=== PATIENT | male | born 1995 | race Hispanic/Latino ===

== ENCOUNTER 2019-09-23 01:11 | Inpatient (IN) | payer SELFPAY ==
[2019-09-23] MEDS ORDERED: Adacel (T-DAP) 0.5 ML SYRINGE ONE (01:19)
[2019-09-23] MEDS ORDERED: Fentanyl 100 MCG/2 ML VIAL ONE ×2 (01:20→01:31)
[2019-09-23] MEDS ORDERED: Ondansetron PF 4 MG/2 ML Vial ONE (01:23)
[2019-09-23 01:44] LABS: INR-International Normal Ratio 2.2; PTT 31.2 SEC (22.9-36.1); Prothrombin Time 24.6 SEC (12.0-14.7)
[2019-09-23 01:45] LABS: #Eosinphils 0.1 thou/uL (0.0-0.7); #Lymphocytes 2.6 thou/uL (1.20-3.40); #Neutrophils 7.2 thou/uL (1.40-6.50); %Basophils 0.4 % (0.0-1.0); %Eosinophils 0.6 % (0.0-10.0); %Lymphocytes 23.6 % (21.0-51.0); %Monocytes 8.8 % (0.0-10.0); %Neutrophils 66.6 % (42.0-75.0); Hemoglobin 8.1 g/dL (14.0-18.0); Mean Corpuscular HGB CONC 36.7 g/dL (32.0-36.0); Mean Corpuscular Volume 92.5 fL (78.0-98.0); Mean Platelet Volume 7.5 fL (7.4-10.4); Platelet Count 158 thou/uL (130-400); RBC Distribution Width 11.6 % (11.5-14.5); White Blood Cell (WBC) Count 10.8 thou/uL (4.8-10.8)
[2019-09-23 01:53] LABS: ALT (SGPT) 9 U/L (8-55); AST (SGOT) 12 U/L (5-34); Albumin 1.7 g/dL (3.5-5.0); Alkaline Phosphatase 27 U/L (40-110); Anion Gap 4 mmol/L (10-20); BUN (Urea Nitrogen) Less than 4 mg/dL (8.9-20.6); Bilirubin, Total 0.2 mg/dL (0.2-1.2); Calc. Creatinine Clearance 0 mL/min (70-130); Carbon Dioxide 11 mmol/L (22-29); Estimated GFR-MDRD Greater than 90; Glucose 65 mg/dL (70-105); Protein, Total 2.7 g/dL (6.0-8.3); Sodium 146 mmol/L (136-145)
[2019-09-23 02:23] LABS: Calcium 3.5 mg/dL (7.8-10.44); Chloride 133 mmol/L (98-107); Potassium 1.6 mmol/L (3.5-5.1)
[2019-09-23] MEDS ORDERED: Sodium Bicarb 50 MEQ/50 ML VIAL ONE (02:25)
[2019-09-23] MEDS ORDERED: Midazolam HCl 5 mg/5 ml Vial ONE (02:26)
[2019-09-23 02:35] LABS: Amphetamine Not Detected (NotDetected); Barbiturates Screen Not Detected (NotDetected); Benzodiazepine Screen Not Detected (NotDetected); Cocaine Metabolite Screen Not Detected (NotDetected); Medtox Control Line Valid? VALID (VALID); Medtox Reader # READER 4; Methadone Not Detected (NotDetected); Methamphetamine Not Detected (NotDetected); Opiate Screen Not Detected (NotDetected); Oxycodone Screen Not Detected (NotDetected); Phencyclidine (PCP) Not Detected (NotDetected); THC/Cannabinoid Screen Not Detected (NotDetected); Tricyclic Screen Not Detected (NotDetected)
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
[2019-09-23] MEDS ORDERED: Dextrose 50% Abboject 50 ML SYRINGE SLOW IVP PRN (03:33)
[2019-09-23] MEDS ORDERED: Dextrose 5% in Water 1,000 ML IV PRN (03:33)
[2019-09-23] MEDS ORDERED: Ventilator Sedation Protocol 1 EACH FS SCH (03:41)
[2019-09-23] MEDS ORDERED: Morphine 2 MG/ML SYRINGE SLOW IVP PRN ×2 (03:45→18:01)
[2019-09-23] MEDS ORDERED: fentaNYL Citrate/PF 2,000 MCG in Sodium Chloride 0.9% 60 ML IV SCH (03:45)
[2019-09-23] MEDS ORDERED: Fentanyl BOLUS 250 ML IVPB PRN (03:45)
[2019-09-23] MEDS ORDERED: Lorazepam 2 MG/ML VIAL SLOW IVP PRN (03:45)
[2019-09-23] MEDS ORDERED: DISCONTINUE PREVIOUS NARCOTIC PAIN MEDICATIONS AND BENZODIAZEPINES FS SCH (03:45)
[2019-09-23] MEDS ORDERED: Propofol BOLUS 1,000 MG/100 ML VIAL IV PRN (03:45)
[2019-09-23] MEDS ORDERED: Sodium Chloride 0.9% 1,000 ML IV SCH ×2 (03:45→10:45)
[2019-09-23 04:07] VITALS: BMI 29.2
[2019-09-23 04:08] LABS: Base Excess (BEa) -7.6 mEq/L (-2.0 to +3.0); CO2 Tension 42.3 mmHg (35.0-45.0); Calcium, Ionized 1.04 mmol/L (1.12-1.30); O2 Tension (PaO2) 91.8 mmHg (80.0-100.0); Potassium - ABG Lab 3.82 mmol/L (3.70-5.30); pH, Arterial 7.27 (7.35-7.45)
[2019-09-23 04:10] LABS: ALV-art Gradient 140.525 (0-20); Puncture Site LINE
[2019-09-23] MEDS: Propofol 1,000 MG/100 ML VIAL IV PRN ×2 (04:11→10:49)
[2019-09-23 04:53] LABS: INR-International Normal Ratio 1.3; PTT 23.1 SEC (22.9-36.1); Prothrombin Time 15.7 SEC (12.0-14.7)
[2019-09-23 04:56] LABS: #Monocytes 0.4 thou/uL (0.11-0.59); #Neutrophils 4.4 thou/uL (1.40-6.50); %Basophils 0.2 % (0.0-1.0); %Eosinophils 0.3 % (0.0-10.0); %Lymphocytes 29.5 % (21.0-51.0); %Monocytes 5.2 % (0.0-10.0); %Neutrophils 64.9 % (42.0-75.0); Alcohol 92 mg/dL (Less than 10); Hemoglobin 15.4 g/dL (14.0-18.0); Mean Corpuscular HGB CONC 34.1 g/dL (32.0-36.0); Mean Corpuscular Hemoglobin 31.2 pg (27.0-31.0); Mean Corpuscular Volume 91.4 fL (78.0-98.0); Mean Platelet Volume 7.7 fL (7.4-10.4); Phosphorus 2.8 mg/dL (2.3-4.7); Platelet Count 241 thou/uL (130-400); RBC Distribution Width 12.1 % (11.5-14.5); Red Blood Cell (RBC) Count 4.94 mill/uL (4.70-6.10); White Blood Cell (WBC) Count 6.8 thou/uL (4.8-10.8)
[2019-09-23 05:08] LABS: ALT (SGPT) 23 U/L (8-55); AST (SGOT) 32 U/L (5-34); Albumin 3.6 g/dL (3.5-5.0); Alkaline Phosphatase 61 U/L (40-110); Anion Gap 15 mmol/L (10-20); BUN (Urea Nitrogen) 6 mg/dL (8.9-20.6); Bilirubin, Total 0.5 mg/dL (0.2-1.2); Calc. Creatinine Clearance 180 mL/min (70-130); Calcium 7.3 mg/dL (7.8-10.44); Carbon Dioxide 18 mmol/L (22-29); Chloride 113 mmol/L (98-107); Estimated GFR-MDRD Greater than 90; Glucose 128 mg/dL (70-105); Magnesium 1.5 mg/dL (1.6-2.6); Protein, Total 5.6 g/dL (6.0-8.3); Sodium 142 mmol/L (136-145)
[2019-09-23] MEDS: Acetaminophen 1,000 MG in Premix Bag 1 BAG IVPB SCH ×3 (05:42→17:46)
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
[2019-09-23] MEDS: MEROPENEM 1 GM/50 ML 1 GM in Premix Bag 1 BAG IVPB SCH ×3 (06:00→22:17)
[2019-09-23 07:08] LABS: Actual Bicarbonate (HCO3a) 17.1 mEq/L (22-28); Base Excess (BEa) -8.7 mEq/L (-2.0 to +3.0); CO2 Tension 36.5 mmHg (35.0-45.0); Calcium, Ionized 1.06 mmol/L (1.12-1.30); Carboxyhemoglobin (COHb) 0.6 gm% (0.0-3.0); Hemoglobin (Hb) 15.1 g/dL (14.0-18.0); O2 Tension (PaO2) 164.2 mmHg (80.0-100.0); Potassium - ABG Lab 3.99 mmol/L (3.70-5.30); pH, Arterial 7.29 (7.35-7.45)
[2019-09-23 07:09] LABS: ALV-art Gradient 75.375 (0-20); Puncture Site LINE
[2019-09-23] MEDS ORDERED: Magnesium Sulfate 4 GM in Sodium Chloride 0.9% 250 ML 250 ML IVPB SCH (07:30)
[2019-09-23] MEDS ORDERED: Calcium Chloride 13.6 MEQ in Sodium Chloride 0.9% 100 ML IVPB SCH (07:30)
[2019-09-23] MEDS ORDERED: Calcium Chloride 1 GM/10 ML Abboject SYRINGE IVP SCH (07:30)
[2019-09-23] MEDS ORDERED: Calcium Gluconate 4.6 MEQ in Sodium Chloride 0.9% 100 ML IVPB SCH (07:45)
[2019-09-23] MEDS: Sodium Chloride 0.9% 1,000 ML IV SCH ×3 (07:47→21:19)
[2019-09-23] MEDS: Famotidine/PF 20 mg/2ml Vial SLOW IVP SCH ×2 (08:16→21:10)
[2019-09-23] MEDS ORDERED: FLU VACC QS2019-20(6MOS UP)/PF 60 MCG/0.5 ML SYRINGE IM ONE (09:00)
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
[2019-09-23 09:32] LABS: Lactic Acid 2.5 mmol/L (0.5-2.2)
[2019-09-23] MEDS ORDERED: Rocuronium Bromide 10 MG/ML (10ML VIAL) ONE (09:56)
[2019-09-23] MEDS ORDERED: PROPOFOL 200 MG/20 ML VIAL ONE (09:56)
[2019-09-23] MEDS ORDERED: Vecuronium 10 MG VIAL ONE (09:56)
[2019-09-23] MEDS ORDERED: Succinylcholine Chloride 20 MG/ML 10 ml SYRINGE FS ONE (09:56)
[2019-09-23] MEDS ORDERED: PHENYLEPHRINE-NS 100 MCG/ML 10 ML SYRINGE ONE (09:56)
[2019-09-23] MEDS ORDERED: Lidocaine 1% PF 5 ML VIAL ONE (09:56)
[2019-09-23] MEDS: Sodium Chloride 0.9% 500 ML IV SCH (10:14)
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
[2019-09-23] MEDS: Clindamycin/D5W 900 MG in Premix Bag 1 BAG IVPB SCH ×2 (13:29→21:11)
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
[2019-09-23] MEDS: Ondansetron PF 4 MG/2 ML Vial IVP PRN (13:50)
[2019-09-23] MEDS: Morphine 4 MG/ML VIAL SLOW IVP PRN ×4 (13:51→21:06)
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
[2019-09-24] MEDS: Acetaminophen 1,000 MG in Premix Bag 1 BAG IVPB SCH ×3 (00:16→18:00)
[2019-09-24] MEDS: Ondansetron PF 4 MG/2 ML Vial IVP PRN (00:33)
[2019-09-24] MEDS: Morphine 4 MG/ML VIAL SLOW IVP PRN ×3 (00:52→06:07)
[2019-09-24] MEDS: Clindamycin/D5W 900 MG in Premix Bag 1 BAG IVPB SCH (05:29)
[2019-09-24] MEDS: Sodium Chloride 0.9% 1,000 ML IV SCH ×3 (05:30→23:37)
[2019-09-24] MEDS: MEROPENEM 1 GM/50 ML 1 GM in Premix Bag 1 BAG IVPB SCH ×3 (06:33→22:27)
[2019-09-24 07:47] LABS: Anion Gap 5 mmol/L (10-20); BUN (Urea Nitrogen) 10 mg/dL (8.9-20.6); Calc. Creatinine Clearance 167 mL/min (70-130); Carbon Dioxide 27 mmol/L (22-29); Chloride 109 mmol/L (98-107); Estimated GFR-MDRD Greater than 90; Glucose 103 mg/dL (70-105); Magnesium 2.1 mg/dL (1.6-2.6); Phosphorus 1.8 mg/dL (2.3-4.7); Potassium 4.3 mmol/L (3.5-5.1); Sodium 137 mmol/L (136-145)
[2019-09-24] MEDS ORDERED: Sodium Phosphate 30 MMOL in Sodium Chloride 0.9% 250 ML 250 ML IVPB SCH (08:00)
[2019-09-24] MEDS: Famotidine/PF 20 mg/2ml Vial SLOW IVP SCH ×2 (09:02→20:16)
[2019-09-24 09:05] LABS: Band 28 % (5-11); Eosinophils 2 % (0-10); Lymphocytes 15 % (21-51); MDiff Complete? YES; Mean Corpuscular HGB CONC 33.4 g/dL (32.0-36.0); Mean Corpuscular Hemoglobin 31.1 pg (27.0-31.0); Mean Corpuscular Volume 93.1 fL (78.0-98.0); Mean Platelet Volume 7.5 fL (7.4-10.4); Metamyelocyte 1 % (0-0); Monocytes 6 % (0-10); Neutrophil 48 % (42-75); Platelet Count 198 thou/uL (130-400); RBC Distribution Width 12.3 % (11.5-14.5); Red Blood Cell (RBC) Count 4.17 mill/uL (4.70-6.10)
[2019-09-24] MEDS ORDERED: PHENYLEPHRINE-NS 100 MCG/ML 10 ML SYRINGE ONE (09:37)
[2019-09-24] MEDS ORDERED: PROPOFOL 200 MG/20 ML VIAL ONE (09:37)
[2019-09-24] MEDS ORDERED: Rocuronium Bromide 10 MG/ML (10ML VIAL) ONE (09:37)
[2019-09-24] MEDS ORDERED: Ondansetron PF 4 MG/2 ML Vial ONE (09:37)
[2019-09-24] MEDS ORDERED: Succinylcholine Chloride 20 MG/ML 10 ml SYRINGE FS ONE (09:37)
[2019-09-24] MEDS ORDERED: Glycopyrrolate 0.2 MG/ML 5 ML SYRINGE ONE (09:37)
[2019-09-24] MEDS ORDERED: Lidocaine 1% PF 5 ML VIAL ONE (09:37)
[2019-09-24] MEDS ORDERED: Ketorolac Tromethamine 30 MG/ML VIAL ONE (09:37)
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
[2019-09-24] MEDS ORDERED: Vancomycin HCl 1 GM in Premix Bag 1 BAG IVPB SCH (14:00)
[2019-09-24] MEDS ORDERED: Gentamicin Sulfate 80 MG in Premix Bag 1 BAG IVPB SCH (14:15)
[2019-09-24] MEDS ORDERED: Promethazine HCl 25 MG/ML VIAL IM PRN ×2 (14:25→18:45)
[2019-09-24] MEDS ORDERED: Ondansetron HCl/PF 4 MG/2 ML Vial IVP PRN ×2 (14:25→18:45)
[2019-09-24] MEDS ORDERED: Promethazine HCl 25 MG/ML VIAL SLOW IVP PRN ×2 (14:25→18:45)
[2019-09-24] MEDS ORDERED: Fentanyl 250 MCG/5 ML VIAL ONE (14:45)
[2019-09-24] MEDS ORDERED: Sodium Chloride 0.9% 30 ML ONE (14:58)
[2019-09-24] MEDS ORDERED: Betamet Acet/Betamet Na Ph 30 MG/5 ML VIAL ONE (14:58)
[2019-09-24] MEDS ORDERED: Bacitracin Zinc Ointment 30 gm TUBE ONE (14:58)
[2019-09-24] MEDS ORDERED: Bupivacaine PF 0.5% 30 ML VIAL ONE (14:58)
[2019-09-24] MEDS ORDERED: Naloxone HCl 0.4 mg/ml Vial IV PRN (16:25)
[2019-09-24] MEDS ORDERED: HYDROmorphone 10 mg/100 ml CADD IV PRN (16:25)
[2019-09-24] MEDS ORDERED: Phenylephrine HCL 10 MG/ML VIAL ONE (16:36)
--- NOTE | 2019-09-24 18:35 | RAD ---
XR Hand Lt 2 View History: ORIF Comparison: None. Findings: No diagnostic images were sent for review. Impression: Total fluoroscopy time: 19 seconds.
[2019-09-24] MEDS ORDERED: Morphine Sulfate 2 MG/ML SYRINGE SLOW IVP PRN (18:45)
[2019-09-24] MEDS ORDERED: PACU-Morphine 4MG/ML VIAL SLOW IVP PRN (18:45)
[2019-09-24] MEDS ORDERED: HYDROmorphone 2 MG/ML VIAL SLOW IVP PRN (18:45)
[2019-09-24] MEDS ORDERED: Midazolam HCl 2 mg/2 ml Vial ONE (18:55)
[2019-09-24 20:06] LABS: Hemoglobin 11.7 g/dL (14.0-18.0); Mean Corpuscular HGB CONC 33.6 g/dL (32.0-36.0); Mean Corpuscular Hemoglobin 31.5 pg (27.0-31.0); Mean Corpuscular Volume 93.7 fL (78.0-98.0); Platelet Count 189 thou/uL (130-400); RBC Distribution Width 12.2 % (11.5-14.5); White Blood Cell (WBC) Count 13.9 thou/uL (4.8-10.8)
[2019-09-24 20:25] LABS: Band 56 % (5-11); Lymphocytes 8 % (21-51); MDiff Complete? YES; Monocytes 6 % (0-10); Neutrophil 25 % (42-75); Ovalocytes SLIGHT = 2-5 cells (100X) (0-1/hpf); Platelet Morphology Comment Appears Adequate; Polychromasia SLIGHT = 2-3 cells (100X) (0-2/hpf); Reactive Lymphocytes 5 % (0-10); Target Cells SLIGHT = 2-5 cells (100X) (0-1/hpf); Tear Drops SLIGHT = 2-5 cells (100X) (0-1/hpf)
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
[2019-09-25] MEDS ORDERED: Sodium Chloride 0.9% 500 ML IV SCH ×2 (00:45)
[2019-09-25] MEDS: Acetaminophen 1,000 MG in Premix Bag 1 BAG IVPB SCH ×2 (00:59→06:49)
[2019-09-25] MEDS: Sodium Chloride 0.9% 500 ML IV SCH (01:00)
[2019-09-25 06:42] LABS: Anion Gap 10 mmol/L (10-20); BUN (Urea Nitrogen) 8 mg/dL (8.9-20.6); Calc. Creatinine Clearance 180 mL/min (70-130); Carbon Dioxide 21 mmol/L (22-29); Chloride 107 mmol/L (98-107); Estimated GFR-MDRD Greater than 90; Glucose 95 mg/dL (70-105); Potassium 3.8 mmol/L (3.5-5.1); Sodium 134 mmol/L (136-145)
[2019-09-25 06:47] LABS: Band 24 % (5-11); Hemoglobin 11.3 g/dL (14.0-18.0); Lymphocytes 8 % (21-51); MDiff Complete? YES; Mean Corpuscular HGB CONC 33.9 g/dL (32.0-36.0); Mean Corpuscular Hemoglobin 31.5 pg (27.0-31.0); Mean Corpuscular Volume 92.7 fL (78.0-98.0); Mean Platelet Volume 8.1 fL (7.4-10.4); Monocytes 10 % (0-10); Neutrophil 58 % (42-75); Platelet Count 189 thou/uL (130-400); RBC Distribution Width 11.8 % (11.5-14.5); Red Blood Cell (RBC) Count 3.61 mill/uL (4.70-6.10); White Blood Cell (WBC) Count 14.4 thou/uL (4.8-10.8)
[2019-09-25 06:56] LABS: Phosphorus 1.6 mg/dL (2.3-4.7)
[2019-09-25] MEDS ORDERED: Potassium Phosphate 30 MMOL in Sodium Chloride 0.9% 500 ML IVPB SCH (07:45)
[2019-09-25] MEDS: Enoxaparin Sodium 30 MG/0.3 ML SYRINGE SC SCH ×2 (08:46→20:32)
[2019-09-25] MEDS: Sodium Chloride 0.9% 1,000 ML IV SCH ×3 (08:46→20:35)
[2019-09-25] MEDS: Famotidine/PF 20 mg/2ml Vial SLOW IVP SCH ×2 (08:47→20:32)
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
[2019-09-25] MEDS: Ketorolac Tromethamine 30 MG/ML VIAL IVP SCH ×3 (11:40→23:49)
[2019-09-25] MEDS ORDERED: Vancomycin HCl 1 GM in Premix Bag 1 BAG IVPB SCH (17:30)
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
[2019-09-26] MEDS: Ketorolac Tromethamine 30 MG/ML VIAL IVP SCH ×4 (05:08→23:02)
[2019-09-26 05:35] LABS: Anion Gap 14 mmol/L (10-20); BUN (Urea Nitrogen) 9 mg/dL (8.9-20.6); Calc. Creatinine Clearance 195 mL/min (70-130); Calcium 8.3 mg/dL (7.8-10.44); Carbon Dioxide 18 mmol/L (22-29); Chloride 108 mmol/L (98-107); Estimated GFR-MDRD Greater than 90; Glucose 77 mg/dL (70-105); Magnesium 2.1 mg/dL (1.6-2.6); Potassium 3.6 mmol/L (3.5-5.1); Sodium 136 mmol/L (136-145)
[2019-09-26 05:42] LABS: Phosphorus 1.6 mg/dL (2.3-4.7)
[2019-09-26] MEDS ORDERED: Potassium Phosphate 30 MMOL in Sodium Chloride 0.9% 250 ML 250 ML IVPB SCH (06:00)
[2019-09-26 06:14] LABS: Band 17 % (5-11); Eosinophils 5 % (0-10); Lymphocytes 18 % (21-51); MDiff Complete? YES; Mean Corpuscular HGB CONC 33.2 g/dL (32.0-36.0); Mean Corpuscular Hemoglobin 30.8 pg (27.0-31.0); Mean Corpuscular Volume 92.8 fL (78.0-98.0); Mean Platelet Volume 7.7 fL (7.4-10.4); Monocytes 7 % (0-10); Neutrophil 53 % (42-75); Platelet Count 219 thou/uL (130-400); Red Blood Cell (RBC) Count 3.56 mill/uL (4.70-6.10); White Blood Cell (WBC) Count 13.3 thou/uL (4.8-10.8)
[2019-09-26] MEDS: Sodium Chloride 0.9% 1,000 ML IV SCH ×3 (08:46→23:03)
[2019-09-26] MEDS: Famotidine/PF 20 mg/2ml Vial SLOW IVP SCH ×2 (08:47→20:38)
[2019-09-26] MEDS: Enoxaparin Sodium 30 MG/0.3 ML SYRINGE SC SCH ×3 (08:47→20:41)
[2019-09-26] MEDS ORDERED: Rocuronium Bromide 10 MG/ML (10ML VIAL) ONE (10:00)
[2019-09-26] MEDS ORDERED: Succinylcholine Chloride 20 MG/ML 10 ml SYRINGE FS ONE (10:00)
[2019-09-26] MEDS ORDERED: Ondansetron PF 4 MG/2 ML Vial ONE (10:00)
[2019-09-26] MEDS ORDERED: PROPOFOL 200 MG/20 ML VIAL ONE (10:00)
[2019-09-26] MEDS ORDERED: Ketorolac Tromethamine 30 MG/ML VIAL ONE (11:32)
[2019-09-26] MEDS ORDERED: Morphine 2 MG/ML SYRINGE ONE (11:54)
[2019-09-26] MEDS ORDERED: Tobramycin Sulfate 1.2 GM VIAL ONE (13:08)
[2019-09-26] MEDS ORDERED: Bupivacaine PF 0.5% 30 ML VIAL ONE (13:08)
[2019-09-26] MEDS ORDERED: Sodium Chloride 0.9% 50 ML ONE (13:09)
[2019-09-26] MEDS ORDERED: Midazolam HCl 2 mg/2 ml Vial ONE (13:18)
[2019-09-26] MEDS ORDERED: Fentanyl 250 MCG/5 ML VIAL ONE (13:18)
[2019-09-26] MEDS ORDERED: Fentanyl 100 MCG/2 ML VIAL ONE (15:16)
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
--- NOTE | 2019-09-26 16:11 | RAD ---
EXAM: 4 fluoroscopic spot images of the left hand DATE: 09/26/2019 12:00 AM INDICATION: ORIF of left hand COMPARISON: Left hand radiograph dated September 23, 2019 FINDING: Total fluoroscopic time was 0.0. Total exposure was 0.0249 daniels per centimeter square. Subm itted fluoroscopic spot images demonstrate screw and wire fixation of the comminuted fractures involving the ring finger metacarpal head and neck region as well as the small finger proximal phalan geal base. IMPRESSION:Intraoperative C arm views of the left hand for ORIF of left hand fractures.
[2019-09-26] MEDS ORDERED: Promethazine HCl 25 MG/ML VIAL SLOW IVP PRN (16:28)
[2019-09-26] MEDS ORDERED: Promethazine HCl 25 MG/ML VIAL IM PRN (16:28)
[2019-09-26] MEDS ORDERED: Ondansetron HCl/PF 4 MG/2 ML Vial IVP PRN (16:28)
[2019-09-26] MEDS ORDERED: Meperidine HCl/PF 25 MG/ML VIAL ONE (16:38)
[2019-09-26] MEDS ORDERED: Morphine 2 MG/ML SYRINGE SLOW IVP PRN (23:11)
[2019-09-26] MEDS: Acetaminophen 1,000 MG in Premix Bag 1 BAG IVPB SCH (23:18)
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
[2019-09-27] MEDS: Vancomycin HCl 1 GM in Premix Bag 1 BAG IVPB SCH ×2 (01:05→13:26)
[2019-09-27] MEDS: Ketorolac Tromethamine 30 MG/ML VIAL IVP SCH (05:44)
[2019-09-27] MEDS: Acetaminophen 1,000 MG in Premix Bag 1 BAG IVPB SCH (05:45)
[2019-09-27 06:38] LABS: Hemoglobin 11.4 g/dL (14.0-18.0); Mean Corpuscular HGB CONC 33.9 g/dL (32.0-36.0); Mean Corpuscular Hemoglobin 31.4 pg (27.0-31.0); Mean Corpuscular Volume 92.5 fL (78.0-98.0); Mean Platelet Volume 7.5 fL (7.4-10.4); Platelet Count 223 thou/uL (130-400); RBC Distribution Width 12.1 % (11.5-14.5); Red Blood Cell (RBC) Count 3.62 mill/uL (4.70-6.10)
[2019-09-27 06:39] LABS: Band 12 % (5-11); Lymphocytes 14 % (21-51); MDiff Complete? YES; Monocytes 19 % (0-10); Myelocyte 1 % (0-0); Neutrophil 54 % (42-75)
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
[2019-09-27 08:40] LABS: Anion Gap 13 mmol/L (10-20); BUN (Urea Nitrogen) 6 mg/dL (8.9-20.6); Calc. Creatinine Clearance 200 mL/min (70-130); Calcium 8.6 mg/dL (7.8-10.44); Carbon Dioxide 23 mmol/L (22-29); Chloride 104 mmol/L (98-107); Estimated GFR-MDRD Greater than 90; Glucose 88 mg/dL (70-105); Potassium 3.6 mmol/L (3.5-5.1); Sodium 136 mmol/L (136-145)
[2019-09-27 08:43] LABS: Phosphorus 1.9 mg/dL (2.3-4.7)
[2019-09-27] MEDS: Enoxaparin Sodium 30 MG/0.3 ML SYRINGE SC SCH ×2 (09:13→19:57)
[2019-09-27] MEDS: Famotidine/PF 20 mg/2ml Vial SLOW IVP SCH ×2 (09:14→19:57)
[2019-09-27] MEDS ORDERED: traMADol HCl 50 MG TAB PO PRN (09:56)
[2019-09-27] MEDS ORDERED: Ibuprofen 600 MG TAB PO PRN (09:57)
[2019-09-27] MEDS ORDERED: Potassium Phosphate 30 MMOL in Sodium Chloride 0.9% 500 ML IVPB SCH (10:15)
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
[2019-09-27] MEDS: traMADol HCl 50 MG TAB PO PRN (13:23)
[2019-09-27] MEDS: Acetaminophen 500 MG TAB PO PRN (13:24)
[2019-09-27] MEDS: Sodium Chloride 0.9% 1,000 ML IV SCH (14:48)
[2019-09-27] MEDS: Gabapentin 300 MG CAP PO SCH (19:57)
[2019-09-28] MEDS: Vancomycin HCl 1 GM in Premix Bag 1 BAG IVPB SCH (00:32)
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
[2019-09-28] MEDS: Acetaminophen 500 MG TAB PO PRN ×2 (03:56→09:15)
[2019-09-28] MEDS: traMADol HCl 50 MG TAB PO PRN (03:56)
[2019-09-28] MEDS: Ondansetron PF 4 MG/2 ML Vial IVP PRN (03:56)
[2019-09-28] MEDS: Enoxaparin Sodium 30 MG/0.3 ML SYRINGE SC SCH (09:08)
[2019-09-28] MEDS: Gabapentin 300 MG CAP PO SCH (09:08)
[2019-09-28] MEDS: Famotidine/PF 20 mg/2ml Vial SLOW IVP SCH (09:08)
[2019-09-28 11:18] VITALS: BP 134/79; TEMP 98.5
== END 2019-09-28 13:45 | disposition home or self-care (01) | DRG 957 ==
LOC: ERS 01:11 → SDC/OP 02:10 → CCU 03:59 → SURG A 19:01
PROVIDERS: ADMIT Surgery; ATTEND Surgery
PROC: 0DQV0ZZ Repair Mesentery, Open Approach (ICD-10-PCS; principal; 2019-09-23)
PROC: 0DQL0ZZ Repair Transverse Colon, Open Approach (ICD-10-PCS; 2019-09-23)
PROC: 0PSV04Z Reposition Left Finger Phalanx with Internal Fixation Device, Open Approach (ICD-10-PCS; 2019-09-24)
PROC: 01Q40ZZ Repair Ulnar Nerve, Open Approach (ICD-10-PCS; 2019-09-24)
PROC: 0PSQ04Z Reposition Left Metacarpal with Internal Fixation Device, Open Approach (ICD-10-PCS; 2019-09-24)
PROC: 3E10X8Z Irrigation of Skin and Mucous Membranes using Irrigating Substance (ICD-10-PCS; 2019-09-24)
PROC: 0PBV0ZZ Excision of Left Finger Phalanx, Open Approach (ICD-10-PCS; 2019-09-25)
PROC: 0PBQ0ZZ Excision of Left Metacarpal, Open Approach (ICD-10-PCS; 2019-09-25)
DX: S36.898A Other injury of other intra-abdominal organs, initial encounter (principal); K65.8 Other peritonitis; S64.02XA Injury of ulnar nerve at wrist and hand level of left arm, initial encounter; S62.617B Displaced fracture of proximal phalanx of left little finger, initial encounter for open fracture; S62.325B Displaced fracture of shaft of fourth metacarpal bone, left hand, initial encounter for open fracture; S66.327A Laceration of extensor muscle, fascia and tendon of left little finger at wrist and hand level, initial encounter; S36.591A Other injury of transverse colon, initial encounter; S36.2 Injury of pancreas; S66.307A Unspecified injury of extensor muscle, fascia and tendon of left little finger at wrist and hand level, initial encounter; S31.641A Puncture wound with foreign body of abdominal wall, left upper quadrant with penetration into peritoneal cavity, initial encounter; Z88.0 Allergy status to penicillin; W33.01XA Accidental discharge of shotgun, initial encounter; E87.6 Hypokalemia; D64.9 Anemia, unspecified; E83.39 Other disorders of phosphorus metabolism
CPT/HCPCS: 36415; 36416; 36430; 51702; 71045; 76000; 80048; 80053; 80306; 80307; 82805; 83605; 83690; 83735; 84100; 85007; 85025; 85027; 85610; 85730; 86850; 86900; 86901; 87070; 87077; 87186; 87205; 90471; 90715; 94002; 96365; 96375; C1713; C9363; G0390; J0131; J0690; J0702; J1650; J1885; J2001; J2060; J2175; J2185; J2250; J2270; J2370; J2405; J2704; J3010; J3260; J3370; J3475; J3490; J7050; P9016; S0020; S0028

== ENCOUNTER 2019-10-16 16:03 | Inpatient (IN) | payer SELFPAY, OTHER ==
[~2019-10-16 16:03] MED LIST: Iopamidol-370 76% 500 ML 1 ML ONE
[2019-10-16 17:13] LABS: Hemoglobin 12.9 g/dL (14.0-18.0); Mean Corpuscular HGB CONC 33.6 g/dL (32.0-36.0); Mean Corpuscular Hemoglobin 29.3 pg (27.0-31.0); Mean Platelet Volume 7.4 fL (7.4-10.4); Platelet Count 453 thou/uL (130-400); RBC Distribution Width 13.2 % (11.5-14.5); Red Blood Cell (RBC) Count 4.42 mill/uL (4.70-6.10); White Blood Cell (WBC) Count 22.4 thou/uL (4.8-10.8)
[2019-10-16 17:35] LABS: Band 9 % (5-11); Lymphocytes 10 % (21-51); MDiff Complete? YES; Monocytes 8 % (0-10); Neutrophil 71 % (42-75); Platelet Morphology Comment Appears Increased; Polychromasia SLIGHT = 2-3 cells (100X) (0-2/hpf); Reactive Lymphocytes 2 % (0-10)
[2019-10-16 17:43] LABS: ALT (SGPT) 37 U/L (8-55); AST (SGOT) 36 U/L (5-34); Albumin 3.7 g/dL (3.5-5.0); Alkaline Phosphatase 146 U/L (40-110); Anion Gap 18 mmol/L (10-20); BUN (Urea Nitrogen) 11 mg/dL (8.9-20.6); Bilirubin, Total 0.5 mg/dL (0.2-1.2); Calc. Creatinine Clearance 0 mL/min (70-130); Calcium 9.6 mg/dL (7.8-10.44); Carbon Dioxide 20 mmol/L (22-29); Chloride 100 mmol/L (98-107); Estimated GFR-MDRD 76; Globulin 4.9 g/dL (2.4-3.5); Glucose 103 mg/dL (70-105); Lipase 89 U/L (8-78); Potassium 4.2 mmol/L (3.5-5.1); Protein, Total 8.6 g/dL (6.0-8.3); Sodium 134 mmol/L (136-145)
[2019-10-16] MEDS ORDERED: Ondansetron PF 4 MG/2 ML Vial ONE (17:53)
[2019-10-16] MEDS ORDERED: Acetaminophen 500 MG TAB ONE (17:53)
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
[2019-10-16] MEDS ORDERED: Cefepime 2 GM VIAL ONE (19:10)
[2019-10-16] MEDS ORDERED: Acetaminophen 1,000 MG in Premix Bag 1 BAG IVPB SCH (19:30)
[2019-10-16] MEDS ORDERED: Vancomycin HCl 1.25 GM in Sodium Chloride 0.9% 250 ML 250 ML IVPB SCH (19:30)
[2019-10-16] MEDS ORDERED: metroNIDAZOLE 500 MG/100 ML BAG ONE (20:06)
[2019-10-16 20:23] LABS: Bacteria/HPF None Seen HPF (None Seen); Bilirubin Negative (Negative); Blood, Urine Negative (Negative); Clarity Clear (Clear); Glucose, Urine (Dipstick) Normal (Negative); Leukocyte Negative Leu/uL (Negative); Nitrite Negative (Negative); Protein, Urine (Dipstick) 30 mg/dL (Neg-Trace); RBC/HPF 0-3 HPF (0-3); Squamous Epithelial 0-3 HPF (0-3); Urobilinogen Normal mg/dL (Less than 2); WBC/HPF 0-3 HPF (0-3)
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
[2019-10-16] MEDS ORDERED: Ondansetron ODT 4 MG TAB PO PRN (22:42)
[2019-10-16] MEDS ORDERED: traMADol HCl 50 MG TAB PO PRN (22:42)
[2019-10-16] MEDS ORDERED: Vancomycin HCl 1 GM in Premix Bag 1 BAG IVPB SCH (22:42)
[2019-10-16] MEDS ORDERED: Dextrose 5% in Water 1,000 ML IV PRN (22:42)
[2019-10-16] MEDS ORDERED: Dextrose 50% Abboject 50 ML SYRINGE SLOW IVP PRN (22:42)
[2019-10-16] MEDS: Sodium Chloride 0.9% 1,000 ML IV SCH (22:45)
[2019-10-16 22:50] VITALS: BMI 26.8
[2019-10-16] MEDS ORDERED: Famotidine 20 MG TAB PO SCH (23:00)
[2019-10-16] MEDS: Acetaminophen 500 MG TAB PO SCH (23:31)
[2019-10-17] MEDS: traMADol HCl 50 MG TAB PO PRN ×3 (02:40→20:11)
[2019-10-17] MEDS: Cyclobenzaprine 10 MG TAB PO PRN ×2 (04:09→23:34)
[2019-10-17] MEDS: metroNIDAZOLE 500 MG in Premix Bag 1 BAG IVPB SCH ×3 (04:09→21:29)
[2019-10-17] MEDS ORDERED: Gabapentin 300 MG CAP PO SCH (04:15)
[2019-10-17 05:18] LABS: #Eosinphils 0.1 thou/uL (0.0-0.7); #Monocytes 2.1 thou/uL (0.11-0.59); #Neutrophils 13.9 thou/uL (1.40-6.50); %Basophils 0.2 % (0.0-1.0); %Eosinophils 0.6 % (0.0-10.0); %Lymphocytes 10.9 % (21.0-51.0); %Monocytes 11.5 % (0.0-10.0); %Neutrophils 76.8 % (42.0-75.0); Hemoglobin 11.6 g/dL (14.0-18.0); Mean Corpuscular HGB CONC 33.1 g/dL (32.0-36.0); Mean Corpuscular Volume 87.5 fL (78.0-98.0); Mean Platelet Volume 7.4 fL (7.4-10.4); Platelet Count 364 thou/uL (130-400); RBC Distribution Width 13.4 % (11.5-14.5); Red Blood Cell (RBC) Count 3.99 mill/uL (4.70-6.10); White Blood Cell (WBC) Count 18.1 thou/uL (4.8-10.8)
[2019-10-17] MEDS: Vancomycin HCl 1.25 GM in Sodium Chloride 0.9% 250 ML 250 ML IVPB SCH ×3 (05:21→23:34)
[2019-10-17] MEDS: Acetaminophen 500 MG TAB PO SCH ×4 (05:21→23:34)
[2019-10-17 05:38] LABS: Anion Gap 13 mmol/L (10-20); BUN (Urea Nitrogen) 8 mg/dL (8.9-20.6); Calc. Creatinine Clearance 149 mL/min (70-130); Carbon Dioxide 20 mmol/L (22-29); Chloride 104 mmol/L (98-107); Estimated GFR-MDRD Greater than 90; Glucose 95 mg/dL (70-105); Sodium 133 mmol/L (136-145)
[2019-10-17] MEDS: Gabapentin 300 MG CAP PO SCH ×3 (09:09→20:04)
[2019-10-17] MEDS: Cefepime 1 GM in Sodium Chloride 0.9% 100 ML IVPB SCH ×2 (09:09→20:04)
[2019-10-17] MEDS: Famotidine 20 MG TAB PO SCH ×2 (09:09→20:04)
[2019-10-17] MEDS: Sodium Chloride 0.9% 1,000 ML IV SCH ×2 (09:14→20:04)
[2019-10-17] MEDS: Ondansetron PF 4 MG/2 ML Vial IVP PRN (10:25)
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
[2019-10-17] MEDS ORDERED: Iopamidol 370 76% 50 ML VIAL FS ONE (13:36)
[2019-10-17] MEDS ORDERED: Iopamidol 370 76% 100 ML VIAL ONE (13:36)
[2019-10-17] MEDS ORDERED: Sodium Bicarbonate 2.5 MEQ/5 ML VIAL ONE (14:04)
[2019-10-17] MEDS ORDERED: Midazolam HCl 2 mg/2 ml Vial ONE (14:04)
[2019-10-17] MEDS ORDERED: Fentanyl 100 MCG/2 ML VIAL ONE (14:04)
--- NOTE | 2019-10-17 15:55 | CT ---
CT-guided abdominal abscess drainage Conscious sedation: At least 30 minutes spent with the patient for conscious sedation. FINDINGS: After explaining the procedure and answering all questions, limited CT imaging of the abdom en was performed. Sterile technique, buffered local anesthesia, CT guidance, conscious sedation, and a left upper quadr ant anterior approach were used to carefully advance the tip of a 19-gauge needle into the irregular fluid collection under the left hemidiaphragm. A small amount of purulent material was aspi rated and sent to laboratory for analysis. Guidewire was then placed, and a 6 [place]ian locking loop catheter placed into the. The fluid collection under CT guidance. A total of 170 cc blood-tinged purulent material was aspirated. The catheter was secured externally and left draining to gravity. Patient tolerated the procedure well and was returned in improved condition. IMPRESSION: Technically successful CT-guided left upper quadrant abdominal abscess drainage.
[2019-10-17 21:17] LABS: Vancomycin, Trough 14.6 ug/mL
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
[2019-10-18] MEDS: Sodium Chloride 0.9% 1,000 ML IV SCH ×3 (03:06→17:52)
[2019-10-18] MEDS: metroNIDAZOLE 500 MG in Premix Bag 1 BAG IVPB SCH (04:45)
[2019-10-18 05:16] LABS: Band 5 % (5-11); Hemoglobin 10.7 g/dL (14.0-18.0); Hypochromia SLIGHT = 6-15 cells (100X) (0-5/hpf); Lymphocytes 13 % (21-51); MDiff Complete? YES; Mean Corpuscular HGB CONC 32.6 g/dL (32.0-36.0); Mean Corpuscular Hemoglobin 28.8 pg (27.0-31.0); Mean Corpuscular Volume 88.3 fL (78.0-98.0); Mean Platelet Volume 7.6 fL (7.4-10.4); Metamyelocyte 1 % (0-0); Monocytes 5 % (0-10); Neutrophil 76 % (42-75); Platelet Count 356 thou/uL (130-400); Platelet Morphology Comment Appears Adequate; RBC Distribution Width 13.3 % (11.5-14.5); Red Blood Cell (RBC) Count 3.74 mill/uL (4.70-6.10); White Blood Cell (WBC) Count 13.9 thou/uL (4.8-10.8)
[2019-10-18 05:17] LABS: Anion Gap 12 mmol/L (10-20); BUN (Urea Nitrogen) 6 mg/dL (8.9-20.6); Calc. Creatinine Clearance 155 mL/min (70-130); Calcium 8.6 mg/dL (7.8-10.44); Carbon Dioxide 24 mmol/L (22-29); Chloride 103 mmol/L (98-107); Estimated GFR-MDRD Greater than 90; Glucose 91 mg/dL (70-105); Magnesium 1.7 mg/dL (1.6-2.6); Phosphorus 3.1 mg/dL (2.3-4.7); Potassium 4.2 mmol/L (3.5-5.1); Sodium 135 mmol/L (136-145)
[2019-10-18] MEDS: Acetaminophen 500 MG TAB PO SCH ×3 (06:09→17:56)
[2019-10-18] MEDS: Vancomycin HCl 1.25 GM in Sodium Chloride 0.9% 250 ML 250 ML IVPB SCH (06:09)
[2019-10-18] MEDS: Ondansetron PF 4 MG/2 ML Vial IVP PRN (07:43)
[2019-10-18] MEDS: Famotidine 20 MG TAB PO SCH ×2 (08:16→20:03)
[2019-10-18] MEDS: Gabapentin 300 MG CAP PO SCH ×3 (08:16→20:03)
[2019-10-18] MEDS: MEROPENEM 1 GM/50 ML 1 GM in Premix Bag 1 BAG IVPB SCH ×3 (09:00→18:34)
[2019-10-18] MEDS: Cefepime 1 GM in Sodium Chloride 0.9% 100 ML IVPB SCH (09:22)
[2019-10-18] MEDS ORDERED: Lidocaine 2% Jelly 5 ML TUBE ONE (09:22)
[2019-10-18] MEDS ORDERED: Fentanyl 100 MCG/2 ML VIAL ONE ×3 (09:22→14:50)
[2019-10-18] MEDS ORDERED: Lidocaine 1% (PF) 30 ML VIAL ONE ×2 (09:23→12:55)
[2019-10-18] MEDS ORDERED: Rocuronium Bromide 10 MG/ML (10ML VIAL) ONE (12:38)
[2019-10-18] MEDS ORDERED: Ondansetron PF 4 MG/2 ML Vial ONE (12:38)
[2019-10-18] MEDS ORDERED: Glycopyrrolate 0.2 MG/ML 5 ML SYRINGE ONE (12:38)
[2019-10-18] MEDS ORDERED: PROPOFOL 200 MG/20 ML VIAL ONE (12:38)
[2019-10-18] MEDS ORDERED: Ketorolac Tromethamine 30 MG/ML VIAL ONE (12:38)
[2019-10-18] MEDS ORDERED: Lidocaine 1% PF 5 ML VIAL ONE (12:38)
[2019-10-18] MEDS ORDERED: Sodium Chloride 0.9% 20 ML ONE (14:08)
[2019-10-18] MEDS ORDERED: Neomycin-Polymyxin 1 ML AMP ONE (14:18)
[2019-10-18] MEDS ORDERED: Bupivacaine 0.25% HCL 30 ML VIAL ONE (14:40)
[2019-10-18] MEDS ORDERED: HYDROmorphone 2 MG/ML VIAL ONE ×2 (15:05→15:40)
[2019-10-18] MEDS ORDERED: Promethazine HCl 25 MG/ML VIAL SLOW IVP PRN (15:33)
[2019-10-18] MEDS ORDERED: Morphine Sulfate 2 MG/ML SYRINGE SLOW IVP PRN (15:33)
[2019-10-18] MEDS ORDERED: HYDROmorphone 2 MG/ML VIAL SLOW IVP PRN (15:33)
[2019-10-18] MEDS ORDERED: PACU-Morphine 4MG/ML VIAL SLOW IVP PRN (15:33)
[2019-10-18] MEDS ORDERED: Promethazine HCl 25 MG/ML VIAL IM PRN (15:33)
[2019-10-18] MEDS ORDERED: Ondansetron HCl/PF 4 MG/2 ML Vial IVP PRN (15:33)
[2019-10-18] MEDS ORDERED: Meperidine HCl/PF 25 MG/ML VIAL SLOW IVP PRN (15:33)
--- NOTE | 2019-10-18 16:47 | RAD ---
PORTABLE CHEST ONE VIEW: 10/18/19 at 2:40 p.m. HISTORY: Line placement. FINDINGS/IMPRESSION: There is an endotracheal tube with the tip at the level of the clavicular heads. There a right subcla vian central line with tip in the projection of the right atrium. A left sided chest tube is present . There is a drainage catheter in the left upper quadrant. No lobar consolidation, pneumothoraces, or large effusions are seen. There is atelectatic change in the left lower lung. POS: GHASSAN
[2019-10-18] MEDS: Cyclobenzaprine 10 MG TAB PO PRN ×2 (17:56→20:02)
[2019-10-18] MEDS: Ibuprofen 800 MG TAB PO PRN (17:56)
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
[2019-10-19] MEDS: Acetaminophen 500 MG TAB PO SCH ×4 (00:08→17:58)
[2019-10-19] MEDS: Sodium Chloride 0.9% 1,000 ML IV SCH (00:09)
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
[2019-10-19] MEDS: MEROPENEM 1 GM/50 ML 1 GM in Premix Bag 1 BAG IVPB SCH ×3 (02:38→18:09)
[2019-10-19] MEDS: traMADol HCl 50 MG TAB PO PRN ×2 (02:51→17:59)
[2019-10-19 05:11] LABS: Band 12 % (5-11); Eosinophils 4 % (0-10); Hemoglobin 10.6 g/dL (14.0-18.0); Lymphocytes 15 % (21-51); MDiff Complete? YES; Mean Corpuscular HGB CONC 32.5 g/dL (32.0-36.0); Mean Corpuscular Hemoglobin 28.7 pg (27.0-31.0); Mean Corpuscular Volume 88.2 fL (78.0-98.0); Mean Platelet Volume 7.5 fL (7.4-10.4); Monocytes 7 % (0-10); Neutrophil 62 % (42-75); Platelet Count 393 thou/uL (130-400); Platelet Morphology Comment Appears Adequate; RBC Distribution Width 13.4 % (11.5-14.5); Red Blood Cell (RBC) Count 3.71 mill/uL (4.70-6.10)
[2019-10-19 05:18] LABS: Anion Gap 11 mmol/L (10-20); BUN (Urea Nitrogen) 7 mg/dL (8.9-20.6); Calc. Creatinine Clearance 171 mL/min (70-130); Calcium 8.4 mg/dL (7.8-10.44); Carbon Dioxide 25 mmol/L (22-29); Chloride 105 mmol/L (98-107); Estimated GFR-MDRD Greater than 90; Glucose 109 mg/dL (70-105); Magnesium 1.7 mg/dL (1.6-2.6); Phosphorus 3.7 mg/dL (2.3-4.7); Potassium 3.6 mmol/L (3.5-5.1); Sodium 137 mmol/L (136-145)
[2019-10-19] MEDS: Ibuprofen 800 MG TAB PO PRN (06:11)
--- NOTE | 2019-10-19 08:30 | RAD ---
CHEST 1 VIEW: Date: 10/19/19 HISTORY: Left chest tube. COMPARISON: 10/18/19. FINDINGS: Left chest tube in place. Right central line. Borderline heart size. Possibly slightly progressive pl eural and parenchymal opacity changes in the left infrahilar region and lower lung zone, and some robbi nting of the left costophrenic angle, although there is less inspiration which may account for this. No significant acute process on the right. IMPRESSION: Less inspiratory effort with borderline heart size and possibly minimally progressive pleural and par enchymal opacity changes in the left base. No pneumothorax or other acute process. POS: [facility]
[2019-10-19] MEDS: Gabapentin 300 MG CAP PO SCH ×3 (09:59→20:47)
[2019-10-19] MEDS: Famotidine 20 MG TAB PO SCH ×2 (09:59→20:47)
[2019-10-19] MEDS: Enoxaparin Sodium 40 MG/0.4 ML SYRINGE SC SCH (09:59)
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
[2019-10-19] MEDS: Cyclobenzaprine 10 MG TAB PO PRN (20:05)
[2019-10-20] MEDS: Acetaminophen 500 MG TAB PO SCH ×5 (00:05→23:04)
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
[2019-10-20] MEDS: MEROPENEM 1 GM/50 ML 1 GM in Premix Bag 1 BAG IVPB SCH (02:15)
[2019-10-20] MEDS: traMADol HCl 50 MG TAB PO PRN (04:14)
[2019-10-20 05:05] LABS: Band 18 % (5-11); Eosinophils 4 % (0-10); Hemoglobin 10.8 g/dL (14.0-18.0); Lymphocytes 12 % (21-51); MDiff Complete? YES; Mean Corpuscular Volume 87.9 fL (78.0-98.0); Mean Platelet Volume 7.2 fL (7.4-10.4); Monocytes 9 % (0-10); Neutrophil 57 % (42-75); Platelet Count 433 thou/uL (130-400); RBC Distribution Width 13.8 % (11.5-14.5); Red Blood Cell (RBC) Count 3.73 mill/uL (4.70-6.10); White Blood Cell (WBC) Count 13.2 thou/uL (4.8-10.8)
--- NOTE | 2019-10-20 09:17 | RAD ---
CHEST ONE VIEW: HISTORY: Dyspnea. Chest tube. Followup. COMPARISON: 10/19/2019 FINDINGS: The cardiac silhouette is magnified by projection. The pulmonary vasculature is at the upper limits o f normal and is accentuated by shallow inspiration. The left hemidiaphragm is now less visible than o n the prior study. Left thoracostomy tube remains in place. Right subclavian central venous catheter and left upper quad rant abdominal drain are unchanged in position. No evidence of pneumothorax. IMPRESSION: Worsening air space opacification of the left lung base; atelectasis versus pneumonia versus contusio n. POS: [facility]
[2019-10-20] MEDS: Enoxaparin Sodium 40 MG/0.4 ML SYRINGE SC SCH (10:20)
[2019-10-20] MEDS: Gabapentin 300 MG CAP PO SCH ×3 (10:21→20:11)
[2019-10-20] MEDS ORDERED: Saccharomyces boulardii 250 MG CAP PO SCH (10:45)
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
[2019-10-20] MEDS: traMADol HCl 50 MG TAB PO SCH ×3 (12:00→23:04)
[2019-10-20] MEDS: metroNIDAZOLE 500 MG in Premix Bag 1 BAG IVPB SCH ×3 (12:02→23:04)
[2019-10-20] MEDS: Ibuprofen 800 MG TAB PO SCH ×2 (15:26→20:11)
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
[2019-10-21] MEDS: traMADol HCl 50 MG TAB PO SCH ×4 (06:09→23:07)
[2019-10-21] MEDS: Acetaminophen 500 MG TAB PO SCH ×4 (06:09→23:08)
[2019-10-21] MEDS: Ibuprofen 800 MG TAB PO SCH ×3 (06:09→21:52)
[2019-10-21] MEDS: metroNIDAZOLE 500 MG in Premix Bag 1 BAG IVPB SCH ×4 (06:10→23:08)
[2019-10-21 06:50] LABS: Anion Gap 10 mmol/L (10-20); BUN (Urea Nitrogen) 7 mg/dL (8.9-20.6); Calc. Creatinine Clearance 174 mL/min (70-130); Calcium 8.9 mg/dL (7.8-10.44); Carbon Dioxide 28 mmol/L (22-29); Chloride 104 mmol/L (98-107); Estimated GFR-MDRD Greater than 90; Glucose 94 mg/dL (70-105); Magnesium 1.7 mg/dL (1.6-2.6); Phosphorus 4.3 mg/dL (2.3-4.7); Potassium 3.9 mmol/L (3.5-5.1); Sodium 138 mmol/L (136-145)
[2019-10-21 07:01] LABS: Band 10 % (5-11); Eosinophils 4 % (0-10); Lymphocytes 28 % (21-51); MDiff Complete? YES; Mean Corpuscular HGB CONC 33.2 g/dL (32.0-36.0); Mean Corpuscular Hemoglobin 29.2 pg (27.0-31.0); Mean Corpuscular Volume 87.8 fL (78.0-98.0); Mean Platelet Volume 7.3 fL (7.4-10.4); Monocytes 14 % (0-10); Neutrophil 43 % (42-75); Platelet Count 424 thou/uL (130-400); RBC Distribution Width 13.7 % (11.5-14.5); Reactive Lymphocytes 1 % (0-10); Red Blood Cell (RBC) Count 3.76 mill/uL (4.70-6.10); White Blood Cell (WBC) Count 8.6 thou/uL (4.8-10.8)
--- NOTE | 2019-10-21 08:21 | RAD ---
EXAM: Portable chest PROVIDED CLINICAL HISTORY: Chest tube COMPARISON: 10/20/2019 FINDINGS: Significant interval change with respect to the prior examination is not apparent. IMPRESSION: As above.
[2019-10-21] MEDS: Enoxaparin Sodium 40 MG/0.4 ML SYRINGE SC SCH (10:11)
[2019-10-21] MEDS: Saccharomyces boulardii 250 MG CAP PO SCH (10:11)
[2019-10-21] MEDS: Gabapentin 300 MG CAP PO SCH ×3 (10:12→21:52)
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
[2019-10-22] MEDS: metroNIDAZOLE 500 MG in Premix Bag 1 BAG IVPB SCH ×2 (05:37→11:30)
[2019-10-22] MEDS: Acetaminophen 500 MG TAB PO SCH ×2 (05:37→11:30)
[2019-10-22] MEDS: traMADol HCl 50 MG TAB PO SCH ×2 (05:37→11:30)
[2019-10-22] MEDS: Ibuprofen 800 MG TAB PO SCH ×2 (05:37→15:26)
[2019-10-22 05:44] LABS: #Eosinphils 0.5 thou/uL (0.0-0.7); #Lymphocytes 2.3 thou/uL (1.20-3.40); #Monocytes 1.1 thou/uL (0.11-0.59); #Neutrophils 4.9 thou/uL (1.40-6.50); %Basophils 0.5 % (0.0-1.0); %Eosinophils 5.4 % (0.0-10.0); %Lymphocytes 26.4 % (21.0-51.0); %Monocytes 12.8 % (0.0-10.0); %Neutrophils 54.9 % (42.0-75.0); Mean Corpuscular HGB CONC 33.2 g/dL (32.0-36.0); Mean Corpuscular Hemoglobin 29.3 pg (27.0-31.0); Mean Corpuscular Volume 88.1 fL (78.0-98.0); Mean Platelet Volume 7.4 fL (7.4-10.4); Platelet Count 457 thou/uL (130-400); Red Blood Cell (RBC) Count 3.77 mill/uL (4.70-6.10); White Blood Cell (WBC) Count 8.8 thou/uL (4.8-10.8)
--- NOTE | 2019-10-22 07:41 | RAD ---
EXAM: XR Chest 1 View Portable PROVIDED CLINICAL HISTORY: Chest tube removal COMPARISON: 10/21/2019 FINDINGS: Interval removal of left-sided chest tube. No evidence for pneumothorax. Persistent left basilar pleu ral-parenchymal opacity. Right subclavian central line and left upper quadrant pigtail catheter persist. IMPRESSION: Removal of left-sided chest tube without evidence for pneumothorax.
[2019-10-22] MEDS: Saccharomyces boulardii 250 MG CAP PO SCH (08:45)
[2019-10-22] MEDS: Enoxaparin Sodium 40 MG/0.4 ML SYRINGE SC SCH (08:45)
[2019-10-22] MEDS: Gabapentin 300 MG CAP PO SCH (08:45)
[2019-10-22] MEDS: Ondansetron PF 4 MG/2 ML Vial IVP PRN (11:30)
[2019-10-22] MEDS ORDERED: traMADol HCl 50 MG TAB PO PRN ×2 (11:52)
[2019-10-22] MEDS ORDERED: metroNIDAZOLE 500 MG TAB PO SCH (15:00)
[2019-10-22 15:33] VITALS: BP 108/82; TEMP 98.3
[2019-10-22] MEDS ORDERED: Senokot S 8.6-50 MG TAB PO SCH (21:00)
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
[2019-10-23] MEDS ORDERED: Polyethylene Glycol 3350 17 GM Packet PO SCH (09:00)
== END 2019-10-22 15:47 | disposition home or self-care (01) | DRG 856 ==
LOC: ERS 16:03 → INTOOBSV 22:14 → OBSVTOIN 22:14 → SURG A 22:14
PROVIDERS: ADMIT Surgery; ATTEND Surgery
PROC: 0W9G3ZZ Drainage of Peritoneal Cavity, Percutaneous Approach (ICD-10-PCS; principal; 2019-10-16)
PROC: 0J980ZZ Drainage of Abdomen Subcutaneous Tissue and Fascia, Open Approach (ICD-10-PCS; 2019-10-18)
PROC: 0JC60ZZ Extirpation of Matter from Chest Subcutaneous Tissue and Fascia, Open Approach (ICD-10-PCS; 2019-10-18)
PROC: 0W9B00Z Drainage of Left Pleural Cavity with Drainage Device, Open Approach (ICD-10-PCS; 2019-10-18)
PROC: 02HV33Z Insertion of Infusion Device into Superior Vena Cava, Percutaneous Approach (ICD-10-PCS; 2019-10-18)
DX: T81.43XA Infection following a procedure, organ and space surgical site, initial encounter (principal); K65.1 Peritoneal abscess; J90 Pleural effusion, not elsewhere classified; J98.11 Atelectasis; K68.11 Postprocedural retroperitoneal abscess; Z88.0 Allergy status to penicillin
CPT/HCPCS: 36415; 49020; 71045; 74177; 77002; 80048; 80053; 80202; 81003; 81015; 83605; 83690; 83735; 84100; 85007; 85025; 85027; 86140; 87040; 87070; 87076; 87077; 87205; 93005; 94640; 96361; 96365; 96367; 96375; C1729; J0131; J0692; J1170; J1650; J1885; J1956; J2001; J2185; J2250; J2405; J2704; J3010; J3370; J3490; J7050; J7620; Q9967; S0020

== ENCOUNTER 2019-12-04 13:37 | Inpatient (IN) | payer OTHER, SELFPAY ==
[2019-12-04] MEDS ORDERED: Iopamidol-370 76% 500 ML 1 ML ONE (14:42)
[2019-12-04 14:57] LABS: Hemoglobin 14.6 g/dL (14.0-18.0); Mean Corpuscular HGB CONC 33.2 g/dL (32.0-36.0); Mean Corpuscular Hemoglobin 28.3 pg (27.0-31.0); Mean Corpuscular Volume 85.4 fL (78.0-98.0); Mean Platelet Volume 8.3 fL (7.4-10.4); Platelet Count 299 thou/uL (130-400); Red Blood Cell (RBC) Count 5.13 mill/uL (4.70-6.10)
[2019-12-04 15:13] LABS: ALT (SGPT) 38 U/L (8-55); AST (SGOT) 31 U/L (5-34); Albumin 4.1 g/dL (3.5-5.0); Alkaline Phosphatase 110 U/L (40-110); Anion Gap 16 mmol/L (10-20); BUN (Urea Nitrogen) 12 mg/dL (8.9-20.6); Bilirubin, Total 0.5 mg/dL (0.2-1.2); Calc. Creatinine Clearance 0 mL/min (70-130); Calcium 9.3 mg/dL (7.8-10.44); Carbon Dioxide 20 mmol/L (22-29); Chloride 105 mmol/L (98-107); Estimated GFR-MDRD Greater than 90; Globulin 3.5 g/dL (2.4-3.5); Glucose 100 mg/dL (70-105); Lipase 74 U/L (8-78); Protein, Total 7.6 g/dL (6.0-8.3); Sodium 137 mmol/L (136-145)
[2019-12-04 15:16] LABS: Band 24 % (5-11); Lymphocytes 18 % (21-51); MDiff Complete? YES; Monocytes 15 % (0-10); Neutrophil 37 % (42-75); Platelet Morphology Comment Appears Adequate; Polychromasia SLIGHT = 2-3 cells (100X) (0-2/hpf); Reactive Lymphocytes 6 % (0-10)
[2019-12-04 16:59] LABS: Bilirubin Negative (Negative); Blood, Urine Negative (Negative); Clarity Clear (Clear); Glucose, Urine (Dipstick) Normal (Negative); Leukocyte Negative Leu/uL (Negative); Nitrite Negative (Negative); Protein, Urine (Dipstick) 10 mg/dL (Neg-Trace); Urobilinogen Normal mg/dL (Less than 2)
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
[2019-12-04] MEDS ORDERED: Ondansetron PF 4 MG/2 ML Vial IVP PRN (22:34)
[2019-12-04] MEDS ORDERED: Ondansetron ODT 4 MG TAB PO PRN (22:34)
[2019-12-04] MEDS ORDERED: Promethazine HCl 25 MG/ML VIAL IM PRN ×2 (22:34)
[2019-12-04] MEDS ORDERED: Dextrose 5% in Water 1,000 ML IV PRN (22:34)
[2019-12-04] MEDS ORDERED: Dextrose 50% Abboject 50 ML SYRINGE SLOW IVP PRN (22:34)
[2019-12-04] MEDS: Sodium Chloride 0.9% 1,000 ML IV SCH (23:22)
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
[2019-12-05] MEDS ORDERED: traMADol HCl 50 MG TAB PO PRN ×2 (01:53)
[2019-12-05] MEDS ORDERED: Ketorolac Tromethamine 30 MG/ML VIAL IVP SCH (02:00)
[2019-12-05] MEDS: Ketorolac Tromethamine 30 MG/ML VIAL IVP SCH ×3 (02:33→15:55)
[2019-12-05] MEDS: Acetaminophen 500 MG TAB PO SCH ×2 (02:42→08:11)
[2019-12-05 05:24] LABS: Band 6 % (5-11); Eosinophils 2 % (0-10); Hemoglobin 13.2 g/dL (14.0-18.0); Lymphocytes 24 % (21-51); MDiff Complete? YES; Mean Corpuscular HGB CONC 32.5 g/dL (32.0-36.0); Mean Corpuscular Hemoglobin 27.8 pg (27.0-31.0); Mean Corpuscular Volume 85.5 fL (78.0-98.0); Mean Platelet Volume 8.5 fL (7.4-10.4); Monocytes 12 % (0-10); Neutrophil 50 % (42-75); Platelet Count 272 thou/uL (130-400); RBC Distribution Width 14.9 % (11.5-14.5); Reactive Lymphocytes 6 % (0-10); Red Blood Cell (RBC) Count 4.75 mill/uL (4.70-6.10); White Blood Cell (WBC) Count 12.5 thou/uL (4.8-10.8)
[2019-12-05 05:25] LABS: Anion Gap 12 mmol/L (10-20); BUN (Urea Nitrogen) 8 mg/dL (8.9-20.6); Calc. Creatinine Clearance 170 mL/min (70-130); Calcium 8.9 mg/dL (7.8-10.44); Carbon Dioxide 21 mmol/L (22-29); Chloride 107 mmol/L (98-107); Estimated GFR-MDRD Greater than 90; Glucose 97 mg/dL (70-105); Potassium 4.2 mmol/L (3.5-5.1); Sodium 136 mmol/L (136-145)
[2019-12-05] MEDS: Famotidine/PF 20 mg/2ml Vial SLOW IVP SCH ×2 (07:57→20:29)
[2019-12-05] MEDS: Acetaminophen 325 MG TAB PO SCH ×3 (08:11→20:29)
[2019-12-05] MEDS: Sodium Chloride 0.9% 1,000 ML IV SCH (08:17)
[2019-12-05] MEDS ORDERED: metroNIDAZOLE 500 MG TAB PO SCH ×2 (10:53→11:15)
[2019-12-05] MEDS: metroNIDAZOLE 500 MG TAB PO SCH ×3 (13:05→20:29)
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
[2019-12-06] MEDS: Acetaminophen 325 MG TAB PO SCH ×3 (01:36→14:43)
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
[2019-12-06 07:13] VITALS: BP 122/77; TEMP 98.4
[2019-12-06] MEDS ORDERED: Famotidine 20 MG TAB PO SCH ×2 (09:00→11:30)
[2019-12-06] MEDS ORDERED: Saccharomyces boulardii 250 MG CAP PO SCH (09:00)
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
[2019-12-06] MEDS: metroNIDAZOLE 500 MG TAB PO SCH (10:03)
[2019-12-06] MEDS: Famotidine/PF 20 mg/2ml Vial SLOW IVP SCH (10:04)
[2019-12-06] MEDS ORDERED: Iopamidol 300 61% 50 ML VIAL FS ONE (13:03)
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
== END 2019-12-06 14:44 | disposition home or self-care (01) | DRG 372 ==
LOC: ERS 13:37 → SURG A 20:49
PROVIDERS: ADMIT Surgery; ATTEND Surgery
PROC: 0W2GX0Z Change Drainage Device in Peritoneal Cavity, External Approach (ICD-10-PCS; principal; 2019-12-06)
DX: K65.1 Peritoneal abscess (principal); K56.609 Unspecified intestinal obstruction, unspecified as to partial versus complete obstruction
CPT/HCPCS: 36415; 49020; 49424; 71260; 74176; 74177; 80048; 80053; 81003; 83690; 85007; 85025; 85027; 87070; 87077; 87205; 96360; C1729; J1885; J1956; Q9967; S0028

== ENCOUNTER 2020-01-01 11:50 | Emergency (ER) | payer SELFPAY | END 2020-01-01 13:54 | disposition home or self-care (01) | LOC: ERS 11:50 | DX: Z43.1 Encounter for attention to gastrostomy (principal) | CPT/HCPCS: 99282 ==